=== PATIENT | female | born 1970 | race Caucasian/White ===

== ENCOUNTER 2016-10-19 15:36 | Observation (INO) | payer SELFPAY ==
[2016-10-19] MEDS ORDERED: Ondansetron 4 MG Tab.DIS PO PRN (16:39)
[2016-10-19] MEDS ORDERED: HYDROmorphone 1 MG/ML Syringe IVPUSH PRN (16:39)
[2016-10-19] MEDS ORDERED: Sodium Chloride 0.9% 10 ML Syringe FLUSH PRN (16:39)
[2016-10-19] MEDS ORDERED: Temazepam 15 MG Cap PO PRN (16:39)
[2016-10-19] MEDS ORDERED: methylPREDNISolone Sodium Succinate 125 MG/2 ML SDV IVPUSH ONE (16:45)
[2016-10-19] MEDS ORDERED: Ondansetron 4 MG/2 ML SDV IVPUSH PRN (16:53)
[2016-10-19 17:22] LABS: CHLORIDE,CL 100 mEq/L (98-106); SODIUM,NA 137 mEq/L (136-145)
[2016-10-19] MEDS: oxyCODONE 5 MG Tab PO PRN (17:35)
[2016-10-19] MEDS: Acetaminophen 325 MG Tab PO PRN (17:35)
[2016-10-19] MEDS ORDERED: cefTRIAXone 1 GM Vial IVPUSH ONE (17:52)
[2016-10-19] MEDS ORDERED: Levofloxacin/Dextrose 5%-Water 500 MG in Premix Bag 1 BAG IV ONE (18:12)
[2016-10-19] MEDS: Gabapentin 100 MG Cap PO SCH (19:51)
[2016-10-20] MEDS: oxyCODONE 5 MG Tab PO PRN (05:29)
[2016-10-20] MEDS: Acetaminophen 325 MG Tab PO PRN ×2 (05:32→14:42)
[2016-10-20] MEDS ORDERED: Levothyroxine 50 MCG Tab PO SCH (07:00)
[2016-10-20] MEDS ORDERED: PTOM-Hydrochlorothiazide 25 MG Tab PO SCH (08:00)
[2016-10-20] MEDS: PTOM-Potassium Chloride 10 MEQ Tab.ER PO SCH (08:38)
[2016-10-20] MEDS: Gabapentin 100 MG Cap PO SCH ×3 (08:40→19:36)
[2016-10-20] MEDS: methylPREDNISolone Sodium Succinate 125 MG/2 ML SDV IVPUSH SCH ×2 (08:51→19:37)
[2016-10-20] MEDS ORDERED: methylPREDNISolone Acetate 80 MG/ML SDV IARTIC ONE (08:53)
[2016-10-20] MEDS ORDERED: Bupivacaine 0.25% 10 ML SDV INJECT ONE (08:53)
[2016-10-20] MEDS: Polyethylene Glycol 3350 Powder 17 GM Packet PO SCH (10:21)
[2016-10-20] MEDS: OXYCODONE 10 MG PO PRN (16:41)
--- NOTE | 2016-10-20 21:28 | PCM.PN ---
- General Info Date of Service: 10/20/16 Admission Dx/Problem (Free Text): Right Knee Pain Back Pain Functional Status: Reports: pain controlled (Pain improved with pain meds; much better than yesterday) - Review of Systems General: Reports: Weakness HEENT: Reports: no symptoms Pulmonary: Reports: no symptoms Cardiovascular: Reports: No Symptoms Gastrointestinal: Reports: No symptoms Musculoskeletal: Reports: back pain, joint pain Skin: Reports: no symptoms Neurological: Reports: Headache - Patient Data Vitals - most recent: Last Vital Signs Temp 98.8 F 10/20/16 19:49 Pulse 83 10/20/16 19:49 Resp 20 10/20/16 19:49 BP 157/71 H 10/20/16 19:49 Pulse Ox 94 L 10/20/16 19:49 Weight - most recent: 316 lb 8 oz Lab Results last 24 hrs: Laboratory Results - last 24 hr 10/20/16 Range/Units 08:25 Urine Color [place] (YELLOW) Urine Appearance Slightly cloudy (CLEAR) Urine pH 5.5 (4.5-8.0) Ur Specific [place] 1.017 (1.003-1.020) Urine Protein Negative (NEGATIVE) mg/dL Urine Glucose (UA) Negative (NEGATIVE) mg/dL Urine Ketones Negative (NEGATIVE) mg/dL Urine Occult Blood Small H (NEGATIVE) Urine Nitrite Negative (NEGATIVE) Urine Bilirubin Negative (NEGATIVE) Urine Urobilinogen 0.2 (0.2-1.0) EU/dL Ur Leukocyte Esterase Negative (NEGATIVE) Urine RBC Not seen (0-5) /HPF Urine WBC 0-5 (0-5) /HPF Ur Squamous Epith Cells Few H (NOT SEEN) /HPF Urine Bacteria Few H (NOT SEEN) /HPF Med Orders - Current: Current Medications Acetaminophen (Tylenol) 650 mg PO Q4H PRN PRN Reason: Pain (Mild 1-3)/fever Last Admin: 10/20/16 14:42 Dose: 650 mg Gabapentin (Neurontin) 100 mg PO TID KEIKO Last Admin: 10/20/16 19:36 Dose: 100 mg Hydromorphone HCl (Dilaudid) 0.5 mg IVPUSH Q2H PRN PRN Reason: Pain (severe 7-10) Last Admin: 10/19/16 16:58 Dose: 0.5 mg Methylprednisolone Sodium Succinate (Solu-Medrol) 125 mg IVPUSH Q12H [facility] Last Admin: 10/20/16 19:37 Dose: 125 mg Ptom-Levothyroxine (25mcg Tab) 1 each PO 0700 [facility] Ptom-Oxycodone 10mg (Tab) 1 each PO Q4H PRN PRN Reason: Pain (moderate 4-6) Last Admin: 10/20/16 16:41 Dose: 1 each Ondansetron HCl (Zofran Odt) 8 mg PO Q6H PRN PRN Reason: nausea, able to take PO Ondansetron HCl (Zofran) 4 mg IVPUSH Q4H PRN PRN Reason: Nausea Last Admin: 10/19/16 16:58 Dose: 4 mg Polyethylene Glycol (Miralax) 17 gm PO DAILY [facility] Last Admin: 10/20/16 10:21 Dose: 17 gm Potassium Chloride (Klor-Con 10) 10 meq PO DAILY [facility] Last Admin: 10/20/16 08:38 Dose: 10 meq Sodium Chloride (Saline Flush) 10 ml FLUSH ASDIRECTED PRN PRN Reason: Keep Vein Open Temazepam (Restoril) 15 mg PO BEDTIME PRN PRN Reason: Sleep Discontinued Medications Bupivacaine HCl (Sensorcaine-Mpf 0.25%) 0 ml INJECT ONETIME ONE Stop: 10/20/16 08:54 Last Admin: 10/20/16 15:35 Dose: Not Given Ceftriaxone Sodium (Rocephin) 1 gm IVPUSH ONETIME ONE Stop: 10/19/16 17:53 Last Admin: 10/19/16 18:52 Dose: Not Given Hydrochlorothiazide (Hydrochlorothiazide) 25 mg PO DAILY [facility] Last Admin: 10/20/16 08:38 Dose: 25 mg Levofloxacin/Dextrose 500 mg/ (Premix) 100 mls @ 100 mls/hr IV ONETIME ONE Stop: 10/19/16 19:11 Last Admin: 10/19/16 19:40 Dose: 100 mls/hr Levothyroxine Sodium (Synthroid) 25 mcg PO 0700 [facility] Last Admin: 10/20/16 06:30 Dose: 25 mcg Methylprednisolone Acetate (Depo-Medrol) 80 mg IARTIC ONETIME ONE Stop: 10/20/16 08:54 Last Admin: 10/20/16 15:35 Dose: Not Given Methylprednisolone Sodium Succinate (Solu-Medrol) 125 mg IVPUSH ONETIME ONE Stop: 10/19/16 16:46 Last Admin: 10/19/16 17:03 Dose: 125 mg Oxycodone HCl (Oxycodone) 10 mg PO Q4H PRN PRN Reason: Pain (moderate 4-6) Last Admin: 10/20/16 05:29 Dose: 10 mg - Exam General: alert, oriented Neck: supple Lungs: Clear to auscultation, Normal respiratory effort Cardiovascular: Regular Rate, Regular Rhythm Abdomen: bowel sounds present, soft, no tenderness Back Exam: paraspinal tenderness (right lumbar region) Extremities: no edema, other (right knee does still have mild lateral tenderness ; much less tender than yesterday. No redness or swelling.) Skin: warm, dry Neurological: no new focal deficit - Problem List & Annotations (1) Gouty arthropathy, unspecified SNOMED Code(s): 277401160 Code(s): M10.9 - GOUT, UNSPECIFIED Status: Acute Priority: High Current Visit: Yes - Problem List Review Problem List Initiated/Reviewed/Updated: Yes - My Orders Last 24 Hours: My Active Orders 10/20/16 08:44 Consult to Dietary [Consult to Contracts Attorney] [CONS] Routine 10/20/16 08:45 Polyethylene Glycol 3350 [MiraLAX] 17 gm PO DAILY 10/20/16 08:55 SYNOVIAL CRYSTALS Stat - Assessment Assessment:: Gouty Arthropathy - Plan Plan:: Patient admits to being much improved today. States was able to be up and ambulatory at 5 am this am. States knee is less tender and has much better range of motion. Did awake with back pain but admits that being up and about this am improved that. Labs noted yesterday did show a mildly elevated WBC and uric acid level. Discussed knee injection with aspirate for crystals with patient. Patient advised Dr. Lindsey she would like to consider this and he would return later to accomplish this if she agrees. Will continue with PT, ambulation pain meds. Is currently on Solu Medrol. Due to uric acid level being elevated, HCTZ was held. Will watch blood pressure. Possibly discharge in am.
[2016-10-21] MEDS: OXYCODONE 10 MG PO PRN ×2 (03:24→08:03)
[2016-10-21] MEDS ORDERED: LEVOTHYROXINE 25 MCG PO SCH (07:00)
--- NOTE | 2016-10-21 07:01 | OR ---
DATE OF OPERATION: 10/19/2016 DESCRIPTION OF PROCEDURE: Right knee was prepped and draped in usual fashion. Using an anteromedial approach, under sterile condition, a 25-gauge needle was inserted. Aspiration fluid could not be obtained. Syringe of 80 mg Depo-Medrol and 2 mL of 0.5% Sensorcaine was then attached to the needle while still in the joint cavity and injected without any complication. The patient tolerated it well. NORIS/ESTER /[id number]
[2016-10-21] MEDS: Polyethylene Glycol 3350 Powder 17 GM Packet PO SCH (08:04)
[2016-10-21] MEDS: PTOM-Potassium Chloride 10 MEQ Tab.ER PO SCH (08:04)
[2016-10-21] MEDS: Gabapentin 100 MG Cap PO SCH (08:07)
[2016-10-21] MEDS: methylPREDNISolone Sodium Succinate 125 MG/2 ML SDV IVPUSH SCH (10:38)
[2016-10-21 10:54] VITALS: BP 113/64
--- NOTE | 2016-10-22 14:27 | PCM.DCSUM1 ---
Discharge Summary - Hospital Course Free Text/Narrative:: Saray is a 46 year old female admitted by Dr. Lindsey with severe knee and back pain. Was having difficulty with any type of mobility as the pain radiated up and down her right leg and in to her right buttock. Patient felt it was precipitated by the lateral right knee. Had not appreciated much for redness or swelling, just significant pain with any type of movement, weight bearing. Had been given pain injections in the clinic without any improvement so admission was accomplished. - Discharge Data Discharge Date: 10/21/16 Discharge Disposition: Home, Self-Care 01 Condition: Good - Discharge Diagnosis/Problem(s) (1) Gouty arthropathy, unspecified SNOMED Code(s): 025930655 ICD Code: M10.9 - GOUT, UNSPECIFIED Status: Acute Priority: High - Patient Summary/Data Complications: none Consults: Consultations 10/19/16 16:39 PT Evaluation and Treatment [CONS] Routine 10/20/16 08:44 Consult to Dietary [Consult to Dynamics Ax Solution Architect] [CONS] Routine Hospital Course: Patient admitted for knee and back pain. Given pain meds, steroids and antibiotics. Initial labs did show elevation of uric acid 7.2, CRP of 6.3, WBC of 11.7. Did have improvement of her symptoms within approximately 12 hours. Was able to be up and ambulate short distances in the [place] with the walker. Much better movement of her knee by day 2 and her back was aching but improved. Dr. Lindsey did recommend a knee steroid injection with crystal aspirates and patient did agree to this. Initial night after this, patient had increased pain but by day of discharge is doing great. Up and ambulating with the walker , taking minimal meds for pain. Good range of motion of her knee with only mild lateral tenderness. Xray had show significant joint narrowing in this area on admission. - Patient Instructions Diet: Usual Diet as Tolerated Activity: As Tolerated - Discharge Plan Prescriptions/Med Rec: Furosemide [Lasix] 40 mg PO DAILY #30 tablet Gabapentin [Neurontin] 100 mg PO TID #90 cap Prednisone [IJD: predniSONE] 20 mg PO WITHBREAKFAST #10 tab Home Medications: Home Meds Levothyroxine Sodium [Synthroid] 25 mcg PO DAILY 10/17/16 [History] Potassium Chloride 10 meq PO DAILY 10/17/16 [History] oxyCODONE HCl [Oxycodone HCl] 10 mg PO Q6H PRN 10/17/16 [History] Furosemide [Lasix] 40 mg PO DAILY #30 tablet 10/21/16 [Rx] Gabapentin [Neurontin] 100 mg PO TID #90 cap 10/21/16 [Rx] Prednisone [IJD: predniSONE] 20 mg PO WITHBREAKFAST #10 tab 10/21/16 [Rx] Referrals: Manny Lindsey MD [Primary Care Provider] - (See Dr. Lindsey in one week) - Discharge Summary/Plan Comment DC Time >30 min.: No Discharge Summary/Plan Comment: As her uric acid level was higher, we did hold her HCTZ. Blood pressure remained stable but as she did have some increase in edema, will place her on Lasix 40 mg daily. Continue prednisone for 5 days for her gouty arthropathy. Gabapentin for long standing back pain. Follow up with Dr. Lindsey next week. - General Info Date of Service: 10/21/16 Admission Dx/Problem (Free Text: Right Knee Pain Back Pain Functional Status: Reports: pain controlled, tolerating diet, ambulating - Review of Systems General: Denies: Weakness, Fatigue, Malaise HEENT: Reports: no symptoms Pulmonary: Reports: no symptoms Cardiovascular: Reports: No Symptoms Gastrointestinal: Reports: No symptoms Genitourinary: Reports: no symptoms Musculoskeletal: Reports: back pain, joint pain Skin: Reports: no symptoms Neurological: Reports: Headache Psychiatric: Reports: no symptoms - Patient Data Vitals - Most Recent: Last Vital Signs Temp 98.0 F 10/21/16 08:00 Pulse 61 10/21/16 08:00 Resp 18 10/21/16 08:00 BP 113/64 10/21/16 08:00 Pulse Ox 94 L 10/21/16 08:00 Weight - Most Recent: 316 lb 8 oz Med Orders - Current: Current Medications Discontinued Medications Acetaminophen (Tylenol) 650 mg PO Q4H PRN PRN Reason: Pain (Mild 1-3)/fever Last Admin: 10/20/16 14:42 Dose: 650 mg Bupivacaine HCl (Sensorcaine-Mpf 0.25%) 0 ml INJECT ONETIME ONE Stop: 10/20/16 08:54 Last Admin: 10/20/16 15:35 Dose: Not Given Ceftriaxone Sodium (Rocephin) 1 gm IVPUSH ONETIME ONE Stop: 10/19/16 17:53 Last Admin: 10/19/16 18:52 Dose: Not Given Gabapentin (Neurontin) 100 mg PO TID [facility] Last Admin: 10/21/16 08:07 Dose: 100 mg Hydrochlorothiazide (Hydrochlorothiazide) 25 mg PO DAILY [facility] Last Admin: 10/20/16 08:38 Dose: 25 mg Hydromorphone HCl (Dilaudid) 0.5 mg IVPUSH Q2H PRN PRN Reason: Pain (severe 7-10) Last Admin: 10/19/16 16:58 Dose: 0.5 mg Levofloxacin/Dextrose 500 mg/ (Premix) 100 mls @ 100 mls/hr IV ONETIME ONE Stop: 10/19/16 19:11 Last Admin: 10/19/16 19:40 Dose: 100 mls/hr Levothyroxine Sodium (Synthroid) 25 mcg PO 0700 [facility] Last Admin: 10/20/16 06:30 Dose: 25 mcg Methylprednisolone Acetate (Depo-Medrol) 80 mg IARTIC ONETIME ONE Stop: 10/20/16 08:54 Last Admin: 10/20/16 15:35 Dose: Not Given Methylprednisolone Sodium Succinate (Solu-Medrol) 125 mg IVPUSH Q12H [facility] Last Admin: 10/21/16 10:38 Dose: Not Given Methylprednisolone Sodium Succinate (Solu-Medrol) 125 mg IVPUSH ONETIME ONE Stop: 10/19/16 16:46 Last Admin: 10/19/16 17:03 Dose: 125 mg Ptom-Levothyroxine (25mcg Tab) 1 each PO 0700 [facility] Last Admin: 10/21/16 06:01 Dose: 1 each Ptom-Oxycodone 10mg (Tab) 1 each PO Q4H PRN PRN Reason: Pain (moderate 4-6) Last Admin: 10/21/16 08:03 Dose: 1 each Ondansetron HCl (Zofran Odt) 8 mg PO Q6H PRN PRN Reason: nausea, able to take PO Ondansetron HCl (Zofran) 4 mg IVPUSH Q4H PRN PRN Reason: Nausea Last Admin: 10/19/16 16:58 Dose: 4 mg Oxycodone HCl (Oxycodone) 10 mg PO Q4H PRN PRN Reason: Pain (moderate 4-6) Last Admin: 10/20/16 05:29 Dose: 10 mg Polyethylene Glycol (Miralax) 17 gm PO DAILY [facility] Last Admin: 10/21/16 08:04 Dose: 17 gm Potassium Chloride (Klor-Con 10) 10 meq PO DAILY [facility] Last Admin: 10/21/16 08:04 Dose: 10 meq Sodium Chloride (Saline Flush) 10 ml FLUSH ASDIRECTED PRN PRN Reason: Keep Vein Open Temazepam (Restoril) 15 mg PO BEDTIME PRN PRN Reason: Sleep - Exam General: Reports: alert Neck: Reports: supple Lungs: Reports: Clear to auscultation, Normal respiratory effort Cardiovascular: Reports: Regular Rate, Regular Rhythm Abdomen: Reports: bowel sounds present, soft, no tenderness Back Exam: Reports: normal inspection Extremities: Reports: other (lateral and patellar tenderness with palpation) Neurological: Reports: no new focal deficit *Q Meaningful Use (DIS) - VTE *Q VTE Criteria *Q: - Stroke *Q Stroke Criteria *Q: - AMI *Q AMI Criteria *Q:
== END 2016-10-21 11:35 | disposition home or self-care (01) ==
LOC: CC.FCMC 15:36 → CC.MS 15:36 → UNDOADMOB 16:34 → CC.MS 16:34
PROVIDERS: ADMIT Family Medicine; ATTEND Family Medicine
DX: M10.9 Gout, unspecified (principal); M25.561 Pain in right knee; M54.5 Low back pain; Z88.0 Allergy status to penicillin; Z88.8 Allergy status to other drugs, medicaments and biological substances; Z79.899 Other long term (current) drug therapy; F32.9 Major depressive disorder, single episode, unspecified; Z98.890 Other specified postprocedural states; Z87.891 Personal history of nicotine dependence; Z72.0 Tobacco use
CPT/HCPCS: 20610; 36415; 73560; 80048; 81001; 84439; 84443; 84550; 85025; 86140; 96374; 96375; 96376; A9270; G0378; J1170; J1956; J2405; J2930; G0379

== ENCOUNTER 2017-08-14 15:00 | Emergency (ER) | payer SELFPAY ==
[2017-08-14] MEDS ORDERED: Amoxicillin/Clavulanate K 875-125 MG Tab PO ONE (15:01)
[2017-08-14] MEDS ORDERED: Acetaminophen/HYDROcodone 325-5 MG Tab PO ONE (15:01)
[2017-08-14] MEDS ORDERED: Ketorolac 60 MG/2 ML SDV IM ONE (15:06)
[2017-08-14 15:07] VITALS: BP 185/96
[2017-08-14] MEDS ORDERED: Take Home: Amoxicillin/Clavulanate K 875-125 MG Tab, 2 Tab Pack PO ONE (15:07)
[2017-08-14] MEDS ORDERED: Take Home: Acetaminophen/HYDROcodone 325-5 MG, 2 Tab Pack PO ONE (15:12)
--- NOTE | 2017-08-14 15:39 | EDM.PDOC ---
ED HPI GENERAL MEDICAL PROBLEM - General Chief Complaint: General Stated Complaint: TOOTHACHE Time Seen by Provider: 08/14/17 15:05 Source of Information: Reports: Patient History Limitations: Reports: No Limitations - History of Present Illness INITIAL COMMENTS - FREE TEXT/NARRATIVE: Saray is a 47 year old female who presents to the ED with complaints of left sided jaw and ear pain. She reports she was seen by Dr. Garcia (dentist) this week and told she had an abscessed tooth. She reports he gave her azithromycin. She has been taking the azithromycin as prescribed and feels it is getting worse. She states she waited three days, but it has gotten unbearable. She reports she can't tolerate the pain. She has been taking Tylenol and ibuprofen at home without relief. Denies fever or chills. States the pain radiates from her tooth up into her ear and down her jaw. Feels well otherwise. No additional complaints. Onset Date: 08/11/17 Duration: Getting Worse Location: Reports: Face Quality: Reports: Ache Severity: Severe Improves with: Reports: Cold Therapy, Medication Associated Symptoms: Reports: Headaches. Denies: Confusion, Chest Pain, Cough, cough w sputum, Diaphoresis, Fever/Chills, Loss of Appetite, Malaise, Nausea/ Vomiting, Rash, Seizure, Shortness of Breath, Syncope, Weakness Treatments JAWBONE PULLER: Reports: Acetaminophen, NSAIDS, Other Medication(s) ( azithromycin) Right Lower Pain Score (Numeric/FACES): 10 - Related Data Allergies Allergy/AdvReac Type Severity Reaction Status Date / Time aspirin Allergy Swelling Verified 08/14/17 15:07 cephalexin Allergy Hives Verified 08/14/17 15:07 codeine Allergy Vomiting Verified 08/14/17 15:07 Penicillins Allergy Hives Verified 08/14/17 15:07 Home Meds: Home Meds Levothyroxine Sodium [Synthroid] 25 mcg PO DAILY 10/17/16 [History] Potassium Chloride 10 meq PO DAILY 10/17/16 [History] Furosemide [Lasix] 40 mg PO DAILY #30 tablet 10/21/16 [Rx] Amoxicillin/Potassium Clav [Augmentin 875-125 Tablet] 1 tab PO Q12H 8 Days #16 tablet 08/14/17 [Rx] Hydrocodone/Acetaminophen [[place] 10-325 Tablet] 1 tab PO Q4H PRN #20 tablet [Rx] Past Medical History 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 Constitutional: Reports: Decreased Appetite. Denies: Fever, Chills HEENT: Reports: Dental Pain, Ear Pain Respiratory: Denies: Shortness of Breath, Cough Cardiovascular: Denies: Chest Pain, Lightheadedness Neurological: Reports: Headache Psychiatric: Reports: Anxiety ED EXAM, GENERAL - Physical Exam Exam: See Below Exam Limited By: No Limitations General Appearance: Alert, WD/WN, No Apparent Distress, Moderate Distress Eye Exam: Bilateral Eye: PERRL Ears: Normal External Exam, Normal Canal, Hearing Grossly Normal, Normal TMs Ear Exam: Bilateral Ear: Auricle Normal, Canal Normal, TM normal Nose: Normal Inspection, Normal Mucosa, No Blood Throat/Mouth: Normal Lips, Normal Gums, Normal Oropharynx, Normal Voice, No Airway Compromise, Other (decayed right posterior tooth with abscess) Head: Atraumatic, Normocephalic Neck: Normal Inspection, Supple, Non-Tender, Full Range of Motion Respiratory/Chest: No Respiratory Distress, Lungs Clear, Normal Breath Sounds, No Accessory Muscle Use, Chest Non-Tender Cardiovascular: Normal Peripheral Pulses, Regular Rate, Rhythm, No Edema, No Gallop, No JVD, No Murmur, No Rub Neurological: Alert, Oriented, CN II-XII Intact, Normal Cognition, Normal Gait, Normal Reflexes, No Motor/Sensory Deficits Course - Vital Signs Last Recorded V/S: Last Vital Signs Temp 99.3 F 08/14/17 15:00 Pulse 71 08/14/17 15:00 Resp 20 08/14/17 15:00 BP 185/96 H 08/14/17 15:00 Pulse Ox 96 08/14/17 15:00 - Orders/Labs/Meds Meds: Medications Discontinued Medications Generic Name Dose Route Start Last Admin Trade Name Freq PRN Reason Stop Dose Admin Hydrocodone Bitart/Acetaminophen 3 packet 08/14/17 15:12 08/14/17 15:25 Take Home: Acetaminophen/Hydrocod, 2 Tab Pack PO 08/14/17 15:13 3 packet ONETIME ONE Administration Amoxicillin/Clavulanate Potassium 2 packet 08/14/17 15:07 08/14/17 15:25 Take Home: Amox/Clavulanate 875-12, 2 Tab Pac PO 08/14/17 15:08 2 packet ONETIME ONE Administration Ketorolac Tromethamine 60 mg 08/14/17 15:06 08/14/17 15:25 Toradol IM 08/14/17 15:07 60 mg ONETIME ONE Administration - Re-Assessments/Exams Free Text/Narrative Re-Assessment/Exam: Discussed patients allergies. She reports she had a rash with penicillin when she was a child. Departure - Departure Time of Disposition: 15:37 Disposition: Home, Self-Care 01 Condition: Fair Clinical Impression: Dental abscess - Discharge Information Prescriptions: Amoxicillin/Potassium Clav [Augmentin 875-125 Tablet] 1 tab PO Q12H 8 Days #16 tablet Hydrocodone/Acetaminophen [[place] 10-325 Tablet] 1 tab PO Q4H PRN #20 tablet PRN Reason: Pain Instructions: Dental Abscess, [id number] Referrals: Manny Lindsey MD [Primary Care Provider] - Forms: ED Department Discharge Additional Instructions: Antibiotics as prescribed. Pain medications as needed Can alternate warm packs and ice to affected area as needed for comfort Follow up with dentist as scheduled Follow up sooner if symptoms worsen or do not improve
== END 2017-08-14 15:45 | disposition home or self-care (01) ==
LOC: CC.ED 15:00
DX: K04.7 Periapical abscess without sinus (principal); E03.9 Hypothyroidism, unspecified; Z88.8 Allergy status to other drugs, medicaments and biological substances; Z88.5 Allergy status to narcotic agent; Z79.899 Other long term (current) drug therapy
CPT/HCPCS: 96372; 99282; A9270; J1885

== ENCOUNTER 2023-08-06 14:58 | Observation (INO) | payer OTHER ==
[2023-08-06] MEDS ORDERED: HYDROmorphone 0.5 MG/0.5 ML Syringe IVPUSH ONE (16:42)
[2023-08-06] MEDS ORDERED: Ondansetron 4 MG/2 ML SDV IVPUSH PRN (16:57)
[2023-08-06 17:01] LABS: BASOPHILS ABSOLUTE AUTO 0.06 10^3/uL (0.00-0.50); BASOPHILS PERCENT AUTO 0.5 % (0-1); EOSINOPHILS ABSOLUTE AUTO 0.31 10^3/uL (0.00-1.50); EOSINOPHILS PERCENT AUTO 2.5 % (0-6); HEMATOCRIT 44.9 % (37.0-47.0); HEMOGLOBIN 14.3 g/dL (12.0-16.0); IMMATURE GRAN ABSOLUTE AUTO 0.05 10^3/uL (0.00-0.49); IMMATURE GRAN PERCENT AUTO 0.4 % (0.0-4.9); LYMPHOCYTES ABSOLUTE AUTO 3.99 10^3/uL (0.60-5.00); LYMPHOCYTES PERCENT AUTO 32.4 % (24-44); MEAN CORPUSCULAR HGB CONC 31.8 g/dL (32.0-36.0); MEAN CORPUSCULAR VOLUME 97.2 fL (83.0-97.0); MONOCYTES ABSOLUTE AUTO 1.13 10^3/uL (0.00-1.50); MONOCYTES PERCENT AUTO 9.2 % (0-10); NEUTROPHILS ABSOLUTE AUTO 6.77 x10^3/uL (1.80-8.00); PLATELET COUNT,PLT 211 10^3/uL (150-400); RED BLOOD CELL COUNT 4.62 x10^6/uL (4.00-5.50); WHITE BLOOD CELL COUNT,WBC 12.3 10^3/uL (4.0-11.0)
[2023-08-06 17:15] LABS: ALANINE AMINOTRANSFERASE,ALT 20 U/L (12-78); ALBUMIN 3.6 g/dL (3.4-5.0); ALKALINE PHOSPHATASE 82 U/L (46-116); ASPARTATE AMNIOTRANSFERASE,AST 16 U/L (15-37); BLOOD UREA NITROGEN,BUN 18 mg/dL (7-18); CALCIUM 8.8 mg/dL (8.4-10.1); CARBON DIOXIDE,CO2 29 mmol/L (21-32); CHLORIDE,CL 97 mEq/L (98-106); CREATININE 0.8 mg/dL (0.6-1.0); ESTIMATED GFR 87 mL/min (>=60); GLUCOSE RANDOM 87 mg/dL (75-99); LIPASE 26 U/L (16-77); MAGNESIUM 1.8 mg/dL (1.8-2.4); POTASSIUM,K 3.5 mEq/L (3.5-5.0); PROTEIN TOTAL,TP 8.2 g/dL (6.4-8.2); SODIUM,NA 137 mEq/L (136-145)
[2023-08-06] MEDS ORDERED: Acetaminophen 325 MG Tab PO PRN (17:39)
[2023-08-06] MEDS ORDERED: Ondansetron 4 MG/2 ML SDV IV PRN (17:39)
[2023-08-06] MEDS ORDERED: Morphine 2 MG/ML SYRINGE IVPUSH PRN (17:39)
[2023-08-06] MEDS ORDERED: Polyethylene Glycol 3350 Powder 17 GM Packet PO PRN (17:39)
[2023-08-06] MEDS ORDERED: Docusate Sodium 100 MG Cap PO PRN (17:39)
[2023-08-06 17:47] LABS: APPEARANCE,URINE SLIGHTLY CLOUDY (CLEAR); COLOR,URINE YELLOW (YELLOW); GLUCOSE,URINE NEGATIVE (NEGATIVE); KETONES,URINE NEGATIVE (NEGATIVE); LEUKOCYTE ESTERASE,URINE NEGATIVE (NEGATIVE); NITRITE,URINE NEGATIVE (NEGATIVE); OCCULT BLOOD,URINE NEGATIVE (NEGATIVE); PH,URINE 5.5 (4.5-8.0); PROTEIN,URINE NEGATIVE (NEGATIVE); UROBILINOGEN,URINE 0.2 EU/dL (0.2-1.0)
[2023-08-06 17:51] LABS: BILIRUBIN,URINE SMALL (NEGATIVE)
[2023-08-06] MEDS ORDERED: Cyclobenzaprine 10 MG Tab PO PRN (17:55)
[2023-08-06] MEDS ORDERED: Acetaminophen/HYDROcodone 325-5 MG Tab PO PRN (17:56)
[2023-08-06] MEDS: Ketorolac 30 MG/ML SDV IVPUSH PRN (18:25)
[2023-08-07] MEDS: Ketorolac 30 MG/ML SDV IVPUSH PRN (05:11)
[2023-08-07] MEDS ORDERED: Levothyroxine 50 MCG Tab PO SCH (07:00)
[2023-08-07 07:46] VITALS: PULSE 60
[2023-08-07 07:47] VITALS: BP 115/60
[2023-08-07] MEDS ORDERED: atorvaSTATin 10 MG Tab PO SCH (08:00)
[2023-08-07] MEDS ORDERED: Cyanocobalamin (Vitamin B12) 1,000 MCG Tab PO SCH (08:00)
[2023-08-07] MEDS ORDERED: Furosemide 40 MG Tab PO SCH (08:00)
[2023-08-07] MEDS ORDERED: Potassium Chloride 10 MEQ Tab.ER PO SCH (08:00)
[2023-08-07] MEDS ORDERED: Metoprolol Succinate 25 MG Tab.ER PO SCH (08:00)
== END 2023-08-07 12:15 | disposition home or self-care (01) ==
LOC: CC.FCMC 14:58 → CC.MS 14:58 → UNDOADMOB 16:24 → CC.MS 17:39 → UNDODISOB 08-07 12:15
PROVIDERS: ADMIT Physician Assistant Medical; ATTEND Nurse Practitioner
DX: M54.9 Dorsalgia, unspecified (principal); E03.9 Hypothyroidism, unspecified; Z79.899 Other long term (current) drug therapy; Z79.890 Hormone replacement therapy; Z88.5 Allergy status to narcotic agent; Z88.0 Allergy status to penicillin; Z88.8 Allergy status to other drugs, medicaments and biological substances
CPT/HCPCS: 36415; 72080; 72128; 80053; 81003; 83690; 83735; 85025; 85379; 96374; 96375; 96376; 99223; 99238; A9270-GY; G0378; J1170; J1885; J2405; J3360